=== PATIENT | female | born 1965 | race Caucasian/White ===

== ENCOUNTER → 2016-07-16 | Outpatient (CLI) | payer MEDICARE, MEDICAID ==
[~2016-07-16] MED LIST: ALPR2TAB7 PO; ASCO-324 PO; BACL10TA PO; CALMOSEPTINE OINTMENT 3.5 G PACKET TOP ONE; CIPR-280 PO; ESCI20TA30 PO; FAMO20TA8 PO; LORA2TAB2 PO; METH10TA2 PO; OXYB5TAB10 PO; OXYC-533 PO; [UNRECOGNIZED DRUG - CODE] PO
== END ==
LOC: NWCC 10:48
PROVIDERS: ATTEND Internal Medicine
DX: L89.154 Pressure ulcer of sacral region, stage 4 (principal); L89.322 Pressure ulcer of left buttock, stage 2; G82.51 Quadriplegia, C1-C4 complete; L53.9 Erythematous condition, unspecified
CPT/HCPCS: 11042; A9270; G0463

== ENCOUNTER → 2016-08-06 | Outpatient (CLI) | payer MEDICARE, MEDICAID | LOC: NWCC 10:46 | PROVIDERS: ATTEND Internal Medicine | DX: L89.154 Pressure ulcer of sacral region, stage 4 (principal); L89.322 Pressure ulcer of left buttock, stage 2; G82.51 Quadriplegia, C1-C4 complete | CPT/HCPCS: 11042; A6209; A9270; G0463 ==